=== PATIENT | female | born 1955 | race Caucasian/White ===

== ENCOUNTER 2024-03-29 18:36 | Inpatient (IN) | payer OTHER ==
[~2024-03-29] VITALS: Ht 160 cm; Wt 84.8 kg
[2024-03-29] MEDS: IV NS 0.9% 1,000 ML BAG IV ONE (18:50)
[2024-03-29 19:26] LABS: BASOPHILS % (AUTO) 0.2 % (0.0-2.0); EOSINOPHILS % (AUTO) 0.3 % (0.0-6.0); HEMATOCRIT 44 % (33-45); HEMOGLOBIN 14.1 g/dL (11.5-14.8); LYMPHOCYTES # (AUTO) 0.8 K/uL (0.8-4.8); LYMPHOCYTES % (AUTO) 6.1 % (20.0-44.0); MEAN CORPUSCULAR HEMOGLOBIN 28 PG (26.0-33.0); MEAN CORPUSCULAR HGB CONC 32 g/dl (31.0-36.0); MEAN CORPUSCULAR VOLUME 86 fL (82-100); MONOCYTES # (AUTO) 1.2 K/uL (0.1-1.30); MONOCYTES % (AUTO) 9.1 % (2.0-12.0); NEUTROPHILS # (AUTO) 11.5 K/uL (1.8-8.9); NEUTROPHILS % (AUTO) 84.3 % (43.0-81.0); PLATELET COUNT (AUTO) 228 K/uL (150-450); RED BLOOD CELL COUNT(AUTO) 5.11 MIL/uL (4.0-5.2); RED CELL DISTRIBUTION WIDTH 15.5 % (11.5-15.0); WHITE BLOOD COUNT (AUTO) 13.7 K/uL (4.3-11.0)
[2024-03-29 20:35] LABS: ALANINE AMINOTRANSFERASE 15 U/L (12-78); ALBUMIN 2.8 g/dL (3.4-5.0); ALKALINE PHOSPHATASE 72 U/L (46-116); ASPARTATE AMINOTRANSFERASE 14 U/L (15-37); BILIRUBIN,DIRECT 0.2 mg/dL (0.0-0.2); BILIRUBIN,TOTAL 0.7 mg/dL (0.2-1.0); CHLORIDE 103 mmol/L (98-107); GLUCOSE 150 mg/dL (74-106); NT-PRO BNP 557 pg/mL (0-125); POTASSIUM 3.5 mmol/L (3.5-5.1); SODIUM SERUM 133 mmol/L (136-145); UREA NITROGEN, BLOOD 22 mg/dL (7-18)
[2024-03-29 20:52] LABS: CALCIUM, SERUM 8.4 mg/dL (8.5-10.1); CARBON DIOXIDE 19 mmol/L (21-32); TOTAL PROTEIN, SERUM 7.1 g/dL (6.4-8.2)
[2024-03-29 22:31] VITALS: O2SAT 94
[2024-03-30] MEDS ORDERED: HYDROCODONE/APAP 5/325MG TABLET PO PRN (01:00)
[2024-03-30] MEDS ORDERED: ACETAMINOPHEN 325 MG TABLET PO PRN (01:00)
[2024-03-30] MEDS ORDERED: ONDANSETRON HCL/PF 4 MG/2 ML VIAL IV PRN (01:00)
[2024-03-30] MEDS ORDERED: HYDROCODONE/APAP 10/325MG TABLET PO PRN (01:00)
[2024-03-30] MEDS ORDERED: METO25TA20 PO ×2 (01:04→01:12)
[2024-03-30] MEDS ORDERED: CLON0.5T PO (01:04)
[2024-03-30] MEDS: IV NS 0.9% 1,000 ML BAG IV PRN (01:53)
[2024-03-30 05:00] VITALS: BP 112/56; TEMP 98.6; O2SAT 94
[2024-03-30 07:00] VITALS: BP_SYST 100; BP_SYST 110; BP_SYST 119; BP_DIAS 59; BP_DIAS 60; TEMP 97.9; O2SAT 94
[2024-03-30 07:37] LABS: BASOPHILS % (AUTO) 0.4 % (0.0-2.0); EOSINOPHILS # (AUTO) 0.1 K/uL (0.0-0.7); EOSINOPHILS % (AUTO) 1.4 % (0.0-6.0); HEMATOCRIT 39 % (33-45); HEMOGLOBIN 12.8 g/dL (11.5-14.8); LYMPHOCYTES # (AUTO) 1.5 K/uL (0.8-4.8); LYMPHOCYTES % (AUTO) 17.2 % (20.0-44.0); MEAN CORPUSCULAR HEMOGLOBIN 28 PG (26.0-33.0); MEAN CORPUSCULAR HGB CONC 33 g/dl (31.0-36.0); MEAN CORPUSCULAR VOLUME 84 fL (82-100); MONOCYTES % (AUTO) 11.3 % (2.0-12.0); NEUTROPHILS # (AUTO) 6.1 K/uL (1.8-8.9); NEUTROPHILS % (AUTO) 69.7 % (43.0-81.0); PLATELET COUNT (AUTO) 214 K/uL (150-450); RED BLOOD CELL COUNT(AUTO) 4.64 MIL/uL (4.0-5.2); RED CELL DISTRIBUTION WIDTH 15.5 % (11.5-15.0); WHITE BLOOD COUNT (AUTO) 8.7 K/uL (4.3-11.0)
[2024-03-30] MEDS ORDERED: METO25TA4 PO (07:58)
[2024-03-30] MEDS ORDERED: APIX5TAB PO (07:58)
[2024-03-30 08:13] LABS: THYROID STIMULATING HORMONE 0.52 uIU/mL (0.358-3.74)
[2024-03-30 08:21] LABS: CALCIUM, SERUM 8.1 mg/dL (8.5-10.1); CREATININE 0.8 mg/dL (0.6-1.3); POTASSIUM 3.5 mmol/L (3.5-5.1)
[2024-03-30] MEDS: APIXABAN 5 MG TABLET PO SCH (09:07)
[2024-03-30] MEDS: Potassium Chloride 10 MEQ in IV NS 0.9% 1,000 ML IV SCH (11:15)
[2024-03-30 15:29] LABS: APPEARANCE,URINE CLEAR (CLEAR); BILIRUBIN,URINE NEGATIVE (NEGATIVE); BLOOD, URINE 1+ Ery/uL (NEGATIVE); COLOR,URINE YELLOW (YELLOW); KETONES,URINE NEGATIVE (NEGATIVE); LEUKOCYTE ESTERASE ,URINE NEGATIVE (NEGATIVE); NITRITE, URINE NEGATIVE (NEGATIVE); PROTEIN,URINE NEGATIVE (NEGATIVE); UGLUCOSE NEGATIVE (NEGATIVE); UROBILINOGEN,URINE 0.2 EU/dL (0.2)
[2024-03-30 16:09] LABS: BACTERIA,URINE Moderate /HPF (None Seen); SQUAMOUS EPITHELIAL CELL,UR Moderate /HPF (None Seen)
[2024-03-30 16:10] LABS: ADD URINE CULTURE YES; WBC,URINE 0-2 /HPF (0-3)
== END 2024-03-30 13:15 | disposition home or self-care (01) | DRG 641 ==
LOC: ER 18:39 → TELE 23:34
PROVIDERS: ADMIT Internal Medicine; ATTEND Internal Medicine
DX: E86.0 Dehydration (principal); E44.1 Mild protein-calorie malnutrition; D68.69 Other thrombophilia; I95.89 Other hypotension; I10 Essential (primary) hypertension; Z79.01 Long term (current) use of anticoagulants; F41.9 Anxiety disorder, unspecified; E66.9 Obesity, unspecified; Z68.33 Body mass index [BMI] 33.0-33.9, adult; F32.5 Major depressive disorder, single episode, in full remission; I48.0 Paroxysmal atrial fibrillation; Z79.899 Other long term (current) drug therapy
CPT/HCPCS: 36415; 71045-TC; 80048-TC; 80061-TC; 80076-TC; 81001; 83880; 84443-TC; 84484-TC; 85025-TC; 87086-TC; 93307-TC; 93880-TC; 97116-TC; 97530-TC; A4223; G0378; J3480; J7030